=== PATIENT | male | born 1950 | race Caucasian/White ===

== ENCOUNTER 2017-01-04 12:42 | Inpatient (IN) ==
[2017-01-04] MEDS ORDERED: HYDROmorphone 2 MG/1 ML VIAL IV STA (14:05)
[2017-01-04 14:11] LABS: Basophils % 0.3 % (0.0-0.8); Eosinophils % 0.3 % (0.00-10.9); Hematocrit 34.7 VOL% (42.0-52.0); Hemoglobin 10.8 GM/DL (14.0-18.0); Immature Granulocytes % 0.7 %; Immature Granulocytes Absolute 0.09 #; Lymphocytes # 0.5 10*3/uL (1.4-4.0); Lymphocytes % 4.1 % (21.2-54.2); Mean Corpuscular HGB Conc 31.1 GM/DL (32-36); Mean Corpuscular Hemoglobin 27 PG (27-34); Mean Corpuscular Volume 85.5 FL (87-102); Mean Platelet Volume 11.3 FL (9.6-12.0); Monocytes # 1.1 10*3/uL (0.11-0.8); Monocytes % 9.1 % (1.7-12.7); Neutrophils # 10.3 10*3/uL (1.4-7.4); Neutrophils % 85.5 % (38.7-73.9); Platelet Count 343 T/CUMM (130-400); Red Blood Count 4.06 MC/CUMM (3.8-5.5); Red Cell Distribution Width 14.1 % (9.3-17.3); White Blood Count 12.1 T/CUMM (4-12)
[2017-01-04 14:28] LABS: Albumin 2.1 G/DL (3.4-5.0); Bilirubin,Total 0.6 MG/DL (0.2-1.0); Calcium 10.8 MG/DL (8.5-10.1); Osmolality,Calculated 293.3 MOS/KG (273-304); Potassium 4.4 MMOL/L (3.5-5.1); Total Protein 6.7 G/DL (6.4-8.3)
[2017-01-04] MEDS ORDERED: HYDROmorphone 2 MG/1 ML VIAL ONE (14:49)
--- NOTE | 2017-01-04 15:37 | XRay Report ---
XR chest 1V portable Indication: Abdominal pain Comparison: 05 December 2016 Findings: The heart and mediastinum are normal in size and configuration. The pulmonary vascularity is normal in caliber. No lung infiltrates, effusions, pneumothorax or other abnormality is demonstrated. Impression: Normal chest x-ray PROCEDURE INTERPRETED AT [facility] DEPARTMENT OF RADIOLOGY Final Report Signed by: Dr. Job England
[2017-01-04] MEDS ORDERED: SODIUM CHLORIDE 0.9% 1,000 ML IV ONE (15:42)
--- NOTE | 2017-01-04 16:16 | Emergency Department Note ---
Casper Briones Brittany, am scribing for, and in the presence of, Jaiden Vidal MD 14:23. Marcy Briones Phillip K, MD, personally performed the services described in this documentation, ascribed by Rosette Shirley in my presence, and it is both accurate and complete [id number] . Arrival - Arrival Chief Complaint: Abdominal / Flank Pain Stated Complaint: RENAL MASS-PROSTATE SWELLING-ACUTE PAIN ED Nursing Triage Note: Pt states that he was sent from Dr Baca office for admit through ER - pt was seen today for abd pain and swelling and left flank pain. Pt is being seen and treated per Dr Conner Grider for renal mass - pt states that he is also having some edema to lower extrem and jaundice Mode of Arrival: Ambulatory Limitations: No Limitations Source: Patient, Family - History of Present Illness HPI Narrative: This is a 66 y/o white male,who presents to the ED with c/o flank pain. He states he was being seen by Dr. Baca today for flank pain. He states he was seen here on 12/14/2016 for the same complaint. At this time a CT Pelvis and ABD and Ultrasound were preformed which read as follows: CT Abdomen and Pelvis : report reviewed by me (Bullous emphysema. Indeterminate small hypodensities in the liver and 24 mm left adrenal nodule. Cortical loss of the right kidney with probable small renal cysts. However, there is a probable 17 mm hyperdense cyst int he upper pole of the left kideny with possible q8 mm solid mass in the midpole of the left kidney. Moderate bilateral hydonephrosis with dilatation of the ureters to the level of the bladder. Significant bladder wall thickening with irregular contour on the bladder which may be related to a neoplastic process. Assocaited nonspecific enlargement of prostate. Abdominal and pelvic lyphadenopathy which can be seen with metastatic disease, lymphoma, etc. Minimal ascites and anasarca. Diverticulosis with prior appendectomy. ), Ultrasound: report reviewed by me (Left complex renal cyst.) His states he was told by Dr. Grider 3 days ago, he needed to see a Medical doctor. He was seen by Dr. Baca yesterday. Pt's states he has had bilateral pedal edema and jaudice. Pt has no other complaints/pain in the ED at this time. Pt has a PMHx of HTN, COPD, and left kidney mass. Pt denies a surgical Hx. PT denies a family medical Hx. Pt is a former smoker. Onset (ago): hour(s) (Earlier today) Consistency: constant Severity: moderate Allergies/Adverse Reactions: Allergies Allergy/AdvReac Type Severity Reaction Status Date / Time Penicillins Allergy RASH Verified 12/14/16 09:05 Home Medications: Home Medications Medication Instructions Recorded Confirmed Type Albuterol Inhaler [Proventil 2 puff INH Q6H PRN 01/04/17 01/04/17 History Inhaler] Bisacodyl Tab [Dulcolax Tab] 5 mg PO DAILY 01/04/17 01/04/17 History Docusate Sodium Cap [Colace Cap] 100 mg PO DAILY 01/04/17 01/04/17 History Lisinopril 10 mg PO DAILY 01/04/17 01/04/17 History Polyethylene Glycol Powder 17 gm PO DAILY PRN 01/04/17 01/04/17 History [Miralax] Tamsulosin HCl 0.4 mg PO BID 01/04/17 01/04/17 History Tiotropium [place] [Spiriva 4 gm INH BID 01/04/17 01/04/17 History Respimat] Review of System - Review of System 12 point system: reviewed and no additional remarkable complaints except as stated - Review of System Constitutional: Present: chills, fever Gastrointestinal: Present: abdominal pain, nausea Skin: Present: other (jaundice) Additional ROS comments: Decreased appetite, bilateral lower extremity edema Medical,Surgical,& Family Hx - Medical History Cardio: History of: Hypertension Respiratory: History of: COPD Reproductive: Reports: Reproductive Problems (kidney mass, prostate) - Surgical History Thoracic Surgeries: Patient denies;: Lobectomy - Social History Smoking Status: Former smoker Frequency of Alcohol Use: None Type of Drug Use: None Exam Vital Signs: Vital Signs Temperature 98.7 F 01/04/17 16:15 Pulse Rate 96 H 01/04/17 16:15 Respiratory Rate 18 01/04/17 16:15 Blood Pressure 100/60 01/04/17 16:15 O2 Sat by Pulse Oximetry 96 01/04/17 16:15 - General General appearance: alert, in no apparent distress - Head Head exam: Present: atraumatic, normocephalic, normal inspection - Eye Eye exam: Present: normal appearance, PERRL, EOMI. Absent: nystagmus - ENT ENT exam: Present: normal exam, normal oropharynx, mucous membranes moist - Neck Neck exam: Present: normal inspection, full ROM, trachea midline. Absent: tenderness, meningismus, lymphadenopathy, thyromegaly - Chest Chest inspection: Present: normal inspection, symmetric chest wall rise. Absent : tenderness, rash, abscess - Respiratory Respiratory exam: Present: normal lung sounds bilaterally. Absent: prolonged expiratory phase, rales, respiratory distress, rhonchi, stridor, wheezes - Cardiovascular Cardiovascular exam: Present: regular rate, normal rhythm, normal heart sounds. Absent: murmur, rubs, gallop, clicks, JVD - Abdominal Exam Abdominal exam: Present: soft, tenderness (Right Upper Quadrant tenderness), normal bowel sounds. Absent: distention, guarding, rebound, rigidity - Extremities Exam Extremities exam: Present: pedal edema (+1 pitting edema to the lower extremities bilaterally ) Results - Labs CBC & BMP: 01/04/17 13:29 01/04/17 13:29 Lab Results: I have reviewed the patients labs Labs: Laboratory Tests 01/04/17 01/04/17 13:29 13:29 WBC 12.1 H RBC 4.06 Hgb 10.8 L Hct 34.7 L MCV 85.5 L MCH 27 MCHC 31.1 L RDW 14.1 Plt Count 343 MPV 11.3 Neut % (Auto) 85.5 H Lymph % (Auto) 4.1 L [place] % (Auto) 9.1 Eos % (Auto) 0.3 Baso % (Auto) 0.3 Neut # (Auto) 10.3 H Lymph # (Auto) 0.5 L [place] # (Auto) 1.1 H Eos # (Auto) 0.0 Baso # (Auto) 0.0 Total Counted Pending Immature Gran % 0.7 Nucleated RBC % 0.0 Immature Gran # 0.09 Nucleated RBCs # 0.00 Sodium 141 Potassium 4.4 Chloride 104 Carbon Dioxide 26 Anion Gap 15.4 H BUN 50 H Creatinine 2.60 H GFR Calculation 29 BUN/Creatinine Ratio 19.00 Glucose 106 Calculated Osmolality 293.3 Calcium 10.8 H Total Bilirubin 0.60 AST 166 H ALT 147 H Alkaline Phosphatase 203 H Total Protein 6.7 Albumin 2.1 L Globulin 4.6 H Albumin/Globulin Ratio 0.4 L Lipase 83.0 - Diagnostic Findings Procedure: Chest x-ray: report reviewed by me (Normal Chest X-ray) Disposition Clinical Impression: probable bladder cancer, hematuria, Elevated liver enzymes, Anasarca, Left renal mass, COPD (chronic obstructive pulmonary disease) Disposition: Still a Patient Condition: Guarded Additional Instructions: Admit to the hospitalist.
--- NOTE | 2017-01-04 16:16 | Hospitalist History & Physical ---
Assessment and Plan - Time spent with patient Time spent with patient: Less than 30 minutes (1) Renal mass, left Status: Acute Assessment and plan: Patient with renal mass and irregular bladder contours with hydronephrosis seen on prior CT. Will admit and hydrate patient and clear for surgery in the morning with Dr. Conner Grider. Further recommendations to follow per Dr. Cornelius Current Visit: Yes (2) Pedal edema Status: Acute Assessment and plan: Patient with 4+ pitting edema of bilateral lower extremities. Will start with elevation and monitor. Further recs to follow per Dr. Cornelius. Current Visit: Yes (3) Acute renal failure Status: Acute Assessment and plan: Patient with elevated creatinine. In with low blood pressure and tachycardia will go ahead and bolus him 1 L. Further recs to follow per Dr. Cornelius. Current Visit: Yes History of Present Illness Chief complaint: Flank pain History of present illness: 66-year-old white male with history of COPD, hypertension presenting to the ED with complaints of flank pain. He states about 6 weeks ago he started having some lower extremity edema and that this is worsened over period of time. He presented to the ED 3 weeks ago and was seen by Dr. Andrea where he was found to have small hypodensities of the liver, left kidney mass, with bilateral hydronephrosis and irregular contour the bladder most likely related to neoplastic process. At that time he had minimal ascites and some anasarca. Along with pelvic lymphadenopathy. He had an appointment to see Dr. Conner Grider about 3 days ago. He wants to do a cystoscopy but he sent the patient to Dr. Baca first for medical clearance for surgery. He showed up in Dr. Baca's clinic today and he was immediately sent to the emergency room. Upon exam patient is in mild distress with some edema bilateral flanks and 4+ edema of the bilateral lower extremities. Patient complains of some intermittent blurry vision, denies headaches difficulty swallowing, diarrhea, positive for shortness of breath and constipation. His lab work is showing mildly elevated white count with a creatinine up to 2.6 and elevated LFTs with a normal T bili. Patient is afebrile with mild hypotension and tachycardia. Dr. Conner Grider is requested Dr. Cornelius to admit for surgical clearance in the morning. Home Medications Medication Instructions Recorded Confirmed Type Albuterol Inhaler [Proventil 2 puff INH Q6H PRN 03/09/17 03/09/17 History Inhaler] Bisacodyl Tab [Dulcolax Tab] 5 mg PO DAILY 01/04/17 01/04/17 History Docusate Sodium Cap [Colace Cap] 100 mg PO DAILY 01/04/17 01/04/17 History Lisinopril 10 mg PO DAILY 01/04/17 01/04/17 History Polyethylene Glycol Powder 17 gm PO DAILY PRN 01/04/17 01/04/17 History [Miralax] Tamsulosin HCl 0.4 mg PO BID 01/04/17 01/04/17 History Tiotropium [place] [Spiriva 4 gm INH BID 01/04/17 01/04/17 History Respimat] Allergies Allergy/AdvReac Type Severity Reaction Status Date / Time Penicillins Allergy RASH Verified 12/14/16 09:05 Medical,Surgical,& Family Hx - Medical History Cardio: History of: Hypertension Respiratory: History of: COPD Reproductive: Reports: Reproductive Problems (kidney mass, prostate) - Surgical History Thoracic Surgeries: Patient denies;: Lobectomy - Family History Family History: Reports;: Family Hypertension - Social History Smoking Status: Former smoker Frequency of Alcohol Use: None Type of Drug Use: None Marital Status: Lives With:: Spouse Review of systems: 10 point review of systems was obtained and pertinent positives and negatives in HPI Exam - Constitutional Vitals: Period Temp Pulse Resp BP Sys/Irving Pulse Ox Last 24 Hr 98.7 F 106 20 93/55 95 Exam: Constitutional System: Mild distress. Mild tremulousness. Head: Normocephalic, atraumatic. Ears, Nose and Throat System: No evidence of Otitis or Mastoiditis. No epistaxis or discharge, mucous membranes dry Eyes System: Pupils equal, round, and reactive. Extraocular muscles intact. Neck: Supple, without adenopathy, No jugular venous distention. No thyromegaly, neck mass, or prior surgery apparent. Respiratory System: Chest clear to auscultation. Cardiovascular System: Heart with tachycardia. No murmur. GI System: Abdomen soft, nontender. Normo active bowel sounds present. Some dependent edema in bilateral flanks with left greater than the right Musculoskeletal System: limbs with 4+ pedal edema. Distal pulses difficult to palpate due to edema. Neurological System: No discernable sensory deficit. No aphasia Psychiatric System: Conversation is rational Results - Labs CBC & BMP: 01/04/17 13:29 01/04/17 13:29 Lab Results: I have reviewed the past 24 hour labs - Diagnostic Findings Procedure: Chest x-ray: report reviewed by me (No acute process)
[2017-01-04 17:51] LABS: Band Neutrophils 1 % (0-10); Lymphocytes 6 % (20-55); Metamyelocytes 1 %; Platelet Estimate Normal; Segmented Neutrophils 88 % (50-85); Total Cells Counted 100
[2017-01-04 17:52] LABS: Hypochromasia Slight
[2017-01-04] MEDS ORDERED: ACETAMINOPHEN 325 MG TABLET PO PRN (18:10)
[2017-01-04] MEDS ORDERED: DOCUSATE SODIUM 100 MG CAPSULE PO PRN (18:10)
[2017-01-04] MEDS ORDERED: ZALEPLON 5 MG CAPSULE PO PRN (18:10)
[2017-01-04] MEDS ORDERED: LACTULOSE 20 GM/30 ML UDCUP PO PRN (18:10)
[2017-01-04] MEDS ORDERED: POLYETHYLENE GLYCOL POWDER 17 GM PACK PO PRN (18:12)
[2017-01-04] MEDS ORDERED: ALBUTEROL 2.5 MG/3 ML NEB RESP TX PRN (18:30)
[2017-01-04] MEDS: DEXTROSE 5% NACL 0.45% 1,000 ML IV SCH (18:31)
--- NOTE | 2017-01-04 18:43 | Urology Consultation ---
Assessment and Plan - Time spent with patient Time spent with patient: Greater than 30 minutes (1) Gross hematuria Status: Acute Current Visit: Yes (2) Bilateral hydronephrosis Status: Acute Current Visit: Yes (3) Abnormal CT scan, bladder Status: Acute Assessment and plan: I am going to place a Nicole in him. His creatinine is 2.6 hopefully this will improve. I will perform cystoscopy tomorrow. My fear is he has got bladder cancer. I am not worried about the renal masses. These are cysts and hyperdense cyst. These will take backseat to the voiding problems and the hematuria and the abnormal CT Current Visit: Yes History of Present Illness - Data of Consult Patient: known to practice within the last 3 years Consult date: 01/04/17 Requesting Physician: Zoya Cornelius - Consult Narrative Reason for consult: Hydronephrosis History of present illness: Mr. Nieto is a 66 year old male who I saw initially 2 years ago. He was referred to me with gross hematuria. Evaluation was scheduled but he refused. Evaluation included a CT urogram and cystoscopy. He then presented the office with multiple problems. He has had hematuria. He has bilateral hydronephrosis has an elevated creatinine and an abnormal bladder on CT scan. Is also found to have masses in the kidneys. Ultrasound of the kidney reveals cysts and hyperdense cyst. Nothing to suggest a significant cancer in the upper tracts. He was referred back over to Dr. Bianchi who then sent him to the emergency room today. He is being admitted. He was scheduled for an outpatient cystoscopy. Now the serum going to recommend we place a Nicole. He will still get a cystoscopy tomorrow. My fear is that he has got a significant bladder cancer that was there 2 years ago and he did not do anything about it. CC: Leonard Castellanos MD - Home Medications and Allergies Home Medications: Home Medications Medication Instructions Recorded Confirmed Type Albuterol Inhaler [Proventil 2 puff INH Q6H PRN 01/04/17 01/04/17 History Inhaler] Bisacodyl Tab [Dulcolax Tab] 5 mg PO DAILY 01/04/17 01/04/17 History Docusate Sodium Cap [Colace Cap] 100 mg PO DAILY 01/04/17 01/04/17 History Lisinopril 10 mg PO DAILY 01/04/17 01/04/17 History Polyethylene Glycol Powder 17 gm PO DAILY PRN 01/04/17 01/04/17 History [Miralax] Tamsulosin HCl 0.4 mg PO BID 01/04/17 01/04/17 History Tiotropium [place] [Spiriva 4 gm INH BID 01/04/17 01/04/17 History Respimat] Allergies/Adverse Reactions: Allergies Allergy/AdvReac Type Severity Reaction Status Date / Time Penicillins Allergy RASH Verified 12/14/16 09:05 12 point system: reviewed and no additional remarkable complaints except as stated - Genitourinary Genitourinary: Present: difficulty urinating, dysuria, hematuria, nocturia, urinary frequency, urinary incontinence Exam - Constitutional Vitals: Period Temp Pulse Resp BP Sys/Irving Pulse Ox Last 24 Hr 98.1 F-98.7 F 93-106 18-20 93-114/55-66 93-96 - GI/Abdominal GI/Abdominal exam: Present: soft. Absent: tenderness, rebound - Genitourinary Genitourinary: scrotum without lesions, cysts, edema or rash, penis with no lesions or discharge (Circumcised.), diffusely enlarged prostate without tenderness Results - Labs CBC & BMP: 01/04/17 13:29 01/04/17 13:29 Lab Results: I have reviewed the past 24 hour labs
[2017-01-04] MEDS ORDERED: ALUMINUM/MAGNES/SIMETH MAX STR 30 ML UDCUP PO PRN (19:15)
[2017-01-04] MEDS: IPRATROPIUM 500 MCG/2.5 ML NEB RESP TX SCH (19:44)
[2017-01-04] MEDS: TAMSULOSIN 0.4 MG CAPSULE PO SCH (20:34)
[2017-01-04] MEDS: ONDANSETRON 4 MG/2 ML VIAL IV PRN (22:14)
[2017-01-05] MEDS: MORPHINE 2 MG/1 ML SYRINGE IV PRN ×5 (02:10→22:22)
[2017-01-05] MEDS: ONDANSETRON 4 MG/2 ML VIAL IV PRN ×5 (02:11→22:22)
[2017-01-05] MEDS: DEXTROSE 5% NACL 0.45% 1,000 ML IV SCH ×2 (02:13→23:23)
[2017-01-05 06:42] LABS: Basophils % 0.3 % (0.0-0.8); Eosinophils % 0.2 % (0.00-10.9); Hematocrit 29.8 VOL% (42.0-52.0); Hemoglobin 9.4 GM/DL (14.0-18.0); Immature Granulocytes % 0.7 %; Immature Granulocytes Absolute 0.08 #; Lymphocytes # 0.9 10*3/uL (1.4-4.0); Lymphocytes % 7.3 % (21.2-54.2); Mean Corpuscular HGB Conc 31.5 GM/DL (32-36); Mean Corpuscular Hemoglobin 26 PG (27-34); Mean Corpuscular Volume 83.2 FL (87-102); Mean Platelet Volume 11.4 FL (9.6-12.0); Monocytes # 1.4 10*3/uL (0.11-0.8); Monocytes % 11.1 % (1.7-12.7); Neutrophils # 9.8 10*3/uL (1.4-7.4); Neutrophils % 80.4 % (38.7-73.9); Platelet Count 313 T/CUMM (130-400); Red Blood Count 3.58 MC/CUMM (3.8-5.5); Red Cell Distribution Width 14.2 % (9.3-17.3); White Blood Count 12.2 T/CUMM (4-12)
[2017-01-05] MEDS ORDERED: LIDOCAINE 2% TOP JELLY 20 ML VIAL INTRAURETH ONE (06:45)
[2017-01-05 07:32] LABS: Albumin 1.9 G/DL (3.4-5.0); Bilirubin,Total 0.6 MG/DL (0.2-1.0); Calcium 10.6 MG/DL (8.5-10.1); Osmolality,Calculated 287.7 MOS/KG (273-304); Potassium 4.5 MMOL/L (3.5-5.1); Total Protein 5.8 G/DL (6.4-8.3)
[2017-01-05] MEDS: IPRATROPIUM 500 MCG/2.5 ML NEB RESP TX SCH ×4 (08:01→19:38)
[2017-01-05] MEDS: TAMSULOSIN 0.4 MG CAPSULE PO SCH ×2 (08:05→20:23)
[2017-01-05] MEDS: BISACODYL 5 MG TABLET PO SCH (08:05)
[2017-01-05] MEDS: DOCUSATE SODIUM 100 MG CAPSULE PO SCH (08:05)
[2017-01-05] MEDS: PANTOPRAZOLE 40 MG TABLET PO SCH (08:05)
[2017-01-05 09:46] LABS: Thyroid Stimulating Hormone 1.12 uIU/ml (0.358-3.74)
--- NOTE | 2017-01-05 11:11 | Operative Note ---
Date of procedure: 01/05/17 Pre-op diagnosis: Urinary retention and gross hematuria Post-op diagnosis: other (Bladder mass consistent with bladder cancer) Procedure: 66-year-old gentleman who presents with urinary retention abnormal bladder bilateral hydronephrosis. He was seen 2 years ago and an evaluation for gross hematuria was set up but he failed to complete his evaluation then returns with the symptoms. He is brought in now to the hospital she had a catheter is now brought for cystoscopy. Patient brought to endoscopy prepared and draped in usual sterile manner. Previous catheters removed. 2% Xylocaine jelly is placed and bladder for anesthesia. Flexible 16 D[place]hi cystourethroscope passed under direct vision. Anterior urethra is normal. Prostate is irregular and proximal prostate there is irregular mass is at the base of his bladder. This appears to be bladder cancer but it potentially could be prostate cancer. But there is mass along the left side of his bladder. It bled is easily. So I did not get a good look. He clearly needs a TUR. At this point procedure was terminated. Cystoscope removed. A Nicole was replaced. Patient tolerates procedure well and present his room in good condition. Anesthesia: GETA, local Surgeon / Physician: Conner Grider Estimated blood loss: minimal Specimens: none sent Condition: stable Disposition: floor Results - Labs CBC & BMP: 01/05/17 05:31 01/05/17 05:31 Discharge Plan - Discharge Medications No Action Albuterol Inhaler [Proventil Inhaler] 2 puff INH Q6H PRN PRN Reason: Shortness Of Breath/Wheezing Bisacodyl Tab [Dulcolax Tab] 5 mg PO DAILY Docusate Sodium Cap [Colace Cap] 100 mg PO DAILY Polyethylene Glycol Powder [Miralax] 17 gm PO DAILY PRN PRN Reason: Constipation Tamsulosin HCl 0.4 mg PO BID Tiotropium [place] [Spiriva Respimat] 4 gm INH BID Lisinopril 10 mg PO DAILY - Follow Up or Referral - Forms/Instructions
--- NOTE | 2017-01-05 11:57 | Hospitalist Progress Note ---
Assessment and Plan (1) Hypercalcemia Status: Acute Assessment and plan: Hypercalcemia with iCa of 1.54. Low PTH and normal TSH is concerning for hypercalcemia of malignancy. Review of record reveals renal US but no CT on record. Will get CT ABD today as well as skeletal survey to r/o bone mets/lytic lesions. SPEP and UPEP pending. Current Visit: Yes (2) Bladder mass Status: Acute Assessment and plan: noted OP note. Path pending. c/w prostate or bladder primary CA Current Visit: Yes (3) Acute renal failure Status: Acute Assessment and plan: Related to partial NEWMAN? Had hydro on imaging. Now with wilson in place. Monitor response Current Visit: Yes (4) COPD (chronic obstructive pulmonary disease) Status: Chronic Current Visit: Yes Qualifiers: Emphysema type: unspecified (5) Gross hematuria Status: Acute Current Visit: Yes (6) Bilateral hydronephrosis Status: Acute Current Visit: Yes Hospitalist: Subjective Interval history: cystoscopy today. op report noted. mass at base of bladder. path pending. Pt reports weight loss in excess of 20# in past 2 months. No appetite. Exam - Constitutional Vitals: Period Temp Pulse Resp BP Sys/Irving Pulse Ox Last 24 Hr 98.1 F-100.0 F 84-106 16-20 93-125/51-69 91-97 General appearance: under weight - Head Head exam: Present: normal inspection - Eye Eye exam: Present: EOMI Pupils: Present: ANNALISA - ENT ENT exam: Present: normal exam - Neck Neck exam: Present: normal inspection. Absent: lymphadenopathy, tenderness - Respiratory Respiratory exam: Present: clear to auscultation bilaterally. Absent: accessory muscle use, chest wall tenderness - Cardiovascular Cardiovascular exam: Present: regular rate and rhythm. Absent: gallop, rubs - GI/Abdominal GI/Abdominal exam: Present: hypoactive bowel sounds. Absent: distended, tenderness - Extremities Exam Extremities exam: Present: full ROM. Absent: edema - Neurological Exam Neurological exam: Present: alert, oriented X3 - Psychiatric Psychiatric exam: Present: anxious - Skin Skin exam: Present: warm, dry Results - Labs CBC & BMP: 01/05/17 05:31 01/05/17 05:31 - Diagnostic Findings Procedure: Ultrasound: report reviewed by me
--- NOTE | 2017-01-05 14:56 | CT Report ---
Exam: CT abdomen pelvis wo con Date: 01/05/2017 11:50 AM Comparison: 12/14/2016 Indication: Generalized abdominal pain, suspect metastatic disease Technique:[Sequential axial scans of the abdomen and pelvis were obtained following ingestion of oral contrast. No IV contrast given. Coronal and sagittal 2-D reconstructions were obtained. Total DLP: 502.20. This CT exam was performed using one or more of the following dose reduction techniques: Automated exposure control, adjustment of the MA and/or KV according to patient's size, or use of iterative reconstruction technique.] Findings: Bullous emphysema with diffuse groundglass opacities. Residual atelectasis especially anteriorly in the right middle lobe. 1.7 mm noncalcified nodule in the left lower lobe not identified on previous exam. Progressive minimal subpleural nodularity in both lower lobes with tiny pleural effusions. The liver has a lobulated contour with progressive ill-defined hypodensities. The gallbladder is more contracted with possible gallbladder wall thickening. No dilatation of the bile ducts. Multiple calcified granulomata in the nonenlarged spleen. The adrenal glands and right kidney have an unremarkable appearance. Larger 29 mm left adrenal nodule which measured 24 mm on the previous exam. Persistent cortical loss in the kidneys with moderate hydronephrosis. Residual 17 mm hyperdense left upper pole renal cyst and 18 mm complex cystic/solid left midpole finding. No ureteral calculi identified. Nicole catheter in the decompressed urinary bladder with persistent bladder wall thickening. Air in the urinary bladder. Calcifications in the prostate which is stable in size. Calcification in the wall of the nondilated abdominal aorta with multiple enlarged periaortic and pericaval nodes the largest measuring 39 mm compared to 38 mm on the previous exam. Additional enlarged retrocrural, peripancreatic, and bilateral iliac nodes. No dilatation of the small bowel. Limited oral contrast in the colon with diverticulosis. No evidence of diverticulitis or free air with prior appendectomy. Progressive ascites especially in the pelvis. Degenerative changes are noted with progressive small sclerotic findings especially at L1 and T10. Impression: Bullous emphysema with progressive indeterminate small nodular findings at the lung bases with tiny pleural effusions. The liver has a more irregular contour with progressive hypodense findings consistent with probable metastatic disease. Minimally larger left adrenal nodule. Persistent cortical loss of the kidneys with moderate hydronephrosis, hyperdense cyst, and complex cysts/solid masses. Irregular bladder wall thickening with Nicole catheter. Progressive lymphadenopathy and minimal ascites. Limited oral contrast in the bowel with diverticulosis. Progressive small sclerotic findings. All of these findings are felt consistent with probable neoplastic process and follow-up is recommended. PROCEDURE INTERPRETED AT [facility] DEPARTMENT OF RADIOLOGY Final Report Signed by: Dr. Brit Mix
--- NOTE | 2017-01-05 15:06 | XRay Report ---
Exam: XR bone survey complete Date: 01/05/2017 10:56 AM Comparison: None Indication: Hypercalcemia, evaluate for malignancy Technique:[AP and lateral skull, AP and lateral cervical, thoracic, and lumbar spine, AP pelvis, AP and lateral femurs, AP bilateral lower legs, AP bilateral humeri, AP bilateral forearms.] Findings: The skull is normal in size shape and configuration. The sella turcica appears somewhat demineralized with no significant lytic lesions. The alignment of the spine is unremarkable with sclerosis and osteophytes. No obvious fracture is identified. Oral contrast limits evaluation of the pelvis. Elongation of the right lobe of the liver. Calcification in the the prostate. Degenerative changes in the joint spaces. Possible areas of rarefaction in the proximal and mid right humerus. Calcified granulomata/nodes. Impression: No definite fractures are identified. Degenerative changes are noted. Possible ill-defined areas of rarefaction in the right humerus. Bone scan recommended for further evaluation. PROCEDURE INTERPRETED AT [facility] DEPARTMENT OF RADIOLOGY Final Report Signed by: Dr. Brit Mix
[2017-01-05] MEDS: ALBUTEROL 2.5 MG/3 ML NEB RESP TX SCH (16:05)
[2017-01-06] MEDS: ALBUTEROL 2.5 MG/3 ML NEB RESP TX SCH ×4 (01:09→20:20)
[2017-01-06] MEDS: ONDANSETRON 4 MG/2 ML VIAL IV PRN ×5 (03:43→20:05)
[2017-01-06] MEDS: MORPHINE 2 MG/1 ML SYRINGE IV PRN ×3 (03:43→12:18)
[2017-01-06] MEDS: DEXTROSE 5% NACL 0.45% 1,000 ML IV SCH ×2 (06:11→20:14)
[2017-01-06 07:15] LABS: Albumin 1.6 G/DL (3.4-5.0); Calcium 10.6 MG/DL (8.5-10.1); Osmolality,Calculated 289.4 MOS/KG (273-304); Phosphorous 3.6 MG/DL (2.5-4.9); Potassium 4.3 MMOL/L (3.5-5.1)
[2017-01-06] MEDS: IPRATROPIUM 500 MCG/2.5 ML NEB RESP TX SCH ×4 (07:21→20:20)
[2017-01-06] MEDS: TAMSULOSIN 0.4 MG CAPSULE PO SCH ×2 (08:20→20:15)
[2017-01-06] MEDS: BISACODYL 5 MG TABLET PO SCH (08:20)
[2017-01-06] MEDS: PANTOPRAZOLE 40 MG TABLET PO SCH (08:20)
[2017-01-06] MEDS: DOCUSATE SODIUM 100 MG CAPSULE PO SCH (08:20)
--- NOTE | 2017-01-06 10:52 | Oncology Consult Note ---
Assessment and Plan (1) Bladder mass Status: Acute Assessment and plan: discussed with patient and family. suspect stage 4 bladder cancer with pathology pending - will check a PSA level - will follow up pathology - agree with bone scan for staging - recommend CT chest noncontrast given FARAZ to stage chest thank you for consult. will continue to follow and discuss further with patient once pathology returns and staging completed Current Visit: Yes (2) Hypercalcemia Status: Acute Assessment and plan: Low PTH supports likely secondary to malignancy - corrected level today 12.5 - SPEP pending - will hold off on zometa will renal function improving - agree with IVF and will add calcitonin 4 units/kg SC Q12h as a temporizing measure until zometa given Current Visit: Yes (3) Acute renal failure Status: Acute Assessment and plan: likely secondary to hypercalcemia with dehydration as well as bilateral hydronephrosis - trending downing down with IVF and wilson catheter - discussed with family if worsening renal function and if hydro were to worsen then may have to discuss nephrostomy tubes Current Visit: Yes (4) Elevated liver enzymes Status: Acute Assessment and plan: likely secondary to disease. - will add on a hepatitis panel Current Visit: Yes History of Present Illness Chief complaint: failure to thrive and diffuse abdominal pain History of present illness: Mr. Nieto is a 66 year old male with PMHx of COPD and hematuria presented with 7 weeks of failure to thrive, weight loss 20 lbs, poor PO intake, hematuria, severe diffuse abdominal pain. Per patient he has had intermittent hematuria for the last 2 years and did not seek medical attention. Patient had a CT scan of his abdomen concerning for bilateral hydronephrosis, renal cyst, abdominal adenopathy, pulmonary nodules, and bladder wall thickening. A cystoscopy performed on 01/05/17 revealed a friable bladder mass concerning for the primary. Patient states pain poorly controlled on morphine. Labs revealed significant hypercalcemia, LFT elevation and low albumin. Home Medications Medication Instructions Recorded Confirmed Type Albuterol Inhaler [Proventil 2 puff INH Q6H PRN 01/04/17 01/04/17 History Inhaler] Bisacodyl Tab [Dulcolax Tab] 5 mg PO DAILY 01/04/17 01/04/17 History Docusate Sodium Cap [Colace Cap] 100 mg PO DAILY 01/04/17 01/04/17 History Lisinopril 10 mg PO DAILY 01/04/17 01/04/17 History Polyethylene Glycol Powder 17 gm PO DAILY PRN 01/04/17 01/04/17 History [Miralax] Tamsulosin HCl 0.4 mg PO BID 01/04/17 01/04/17 History Tiotropium [place] [Spiriva 4 gm INH BID 01/04/17 01/04/17 History Respimat] Allergies Allergy/AdvReac Type Severity Reaction Status Date / Time Penicillins Allergy RASH Verified 12/14/16 09:05 Medical,Surgical,& Family Hx - Medical History Cardio: History of: Hypertension Respiratory: History of: COPD Reproductive: Reports: Reproductive Problems (kidney mass, prostate) - Surgical History Thoracic Surgeries: Patient denies;: Lobectomy - Family History Family History: Reports;: Family Diabetes (grandmother), Family Heart Disease ( father), Family Hypertension Denies;: Family Anesthesia Reaction, Family Cancer, Family Hematology, Family Psychiatric Problems, Family Stroke, Additional Family History - Social History Smoking Status: Former smoker Frequency of Alcohol Use: None Type of Drug Use: None - Constitutional Constitutional: Present: fatigue, weakness, weight loss - EENT Nose, mouth and throat: Absent: dizziness - Cardiovascular Cardiovascular ROS IM: Present: edema. Absent: chest pain, orthopnea - Respiratory Respiratory: Absent: cough, dyspnea, hemoptysis - Gastrointestinal Gastrointestinal: Present: abdominal pain. Absent: diarrhea, hematemesis, hematochezia, melena, nausea, jaundice - Genitourinary Genitourinary ROS male: Present: hematuria - Musculoskeletal Musculoskeletal ROS: Present: arthralgias, back pain Exam - Constitutional Vitals: Period Temp Pulse Resp BP Sys/Irving Pulse Ox Last 24 Hr 98 F-98.8 F 78-95 16-20 105-123/58-68 90-98 General appearance: mild distress, cachectic - Eye Eye Exam: Present: EOMI Pupils: Present: PERRL - Neck Neck exam: Absent: lymphadenopathy - Respiratory Respiratory exam: Present: CTAB - Cardiovascular Cardiovascular exam: Present: RRR - GI/Abdominal GI/Abdominal exam: Present: guarding (voluntary guarding), tenderness. Absent: ascites, distended, mass - Extremities Exam Extremities exam: Present: edema (bilateral LE) - Neurological Exam Neurological exam: Present: alert, oriented X3, CN II-XII intact - Skin Skin exam: Present: warm Results - Labs CBC & BMP: 01/05/17 05:31 01/06/17 06:03
--- NOTE | 2017-01-06 11:57 | Hospitalist Progress Note ---
Assessment and Plan (1) Hypercalcemia Status: Acute Assessment and plan: Hypercalcemia with iCa of 1.54. Low PTH and normal TSH is concerning for hypercalcemia of malignancy. On IVF, calcitonin added by oncology. SPEP and UPEP pending. Current Visit: Yes (2) Bladder mass Status: Acute Assessment and plan: Path pending. Clinical picture c/w metastatic disease. Medical oncology consulted. Thank you. Current Visit: Yes (3) Acute renal failure Status: Acute Assessment and plan: Related to partial NEWMAN? Had hydro on imaging. Now with wilson in place. Improving. Current Visit: Yes (4) COPD (chronic obstructive pulmonary disease) Status: Chronic Current Visit: Yes Qualifiers: Emphysema type: unspecified (5) Gross hematuria Status: Acute Current Visit: Yes (6) Bilateral hydronephrosis Status: Acute Current Visit: Yes (7) Abdominal pain Status: Acute Assessment and plan: Likely related to metastatic dz. Pain is not controlled with current regime. Anticipate pt will require management of pain for some time going forward; will begin long-acting/basal pain med with MS contin. PRN [place] or IV morphine for breakthrough pain. Current Visit: Yes Qualifiers: Abdominal location: generalized Qualified Code(s): R10.84 - Generalized abdominal pain Hospitalist: Subjective Interval history: Pain in abdomen not well controlled with current tx. Poor appetite. Exam - Constitutional Vitals: Period Temp Pulse Resp BP Sys/Irving Pulse Ox Last 24 Hr 98 F-98.8 F 78-95 16-20 105-123/58-68 90-98 General appearance: mild distress (pain) - Head Head exam: Present: normal inspection, atraumatic - Eye Eye exam: Present: EOMI. Absent: scleral icterus Pupils: Present: ANNALISA - ENT ENT exam: Present: normal exam - Neck Neck exam: Present: normal inspection. Absent: lymphadenopathy, meningismus - Respiratory Respiratory exam: Present: decreased breath sounds. Absent: accessory muscle use (few scattered rhonchi with decreased BS in bases) - Cardiovascular Cardiovascular exam: Present: regular rate and rhythm. Absent: gallop, rubs - GI/Abdominal GI/Abdominal exam: Present: hypoactive bowel sounds. Absent: distended ( generalized TTP without rebound or guarding ) - Extremities Exam Extremities exam: Present: normal inspection, full ROM - Neurological Exam Neurological exam: Present: alert, oriented X3 - Psychiatric Psychiatric exam: Present: flat affect - Skin Skin exam: Present: warm, dry Results - Labs CBC & BMP: 01/05/17 05:31 01/06/17 06:03 - Diagnostic Findings Procedure: Chest x-ray: report reviewed by me, CT Abdomen and Pelvis: report reviewed by me
[2017-01-06] MEDS: MORPHINE ER 30 MG TABLET PO SCH ×2 (12:18→23:36)
[2017-01-06] MEDS: CALCITONIN 400 UNIT/2 ML VIAL SUBCUT SCH ×2 (12:21→23:47)
--- NOTE | 2017-01-06 14:01 | CT Report ---
Exam: CT chest wo con Date: 01/06/2017 11:47 AM Comparison: CT abdomen and pelvis, 01/05/2017, chest x-ray, 01/04/2017 Indication: Staging chest CT with new malignancy Technique:[Sequential axial scans of the chest were obtained without contrast. Coronal and sagittal 2-D reconstructions were obtained. Total DLP: 346.50. There is CT was performed using one or more of the following dose reduction techniques: Automated exposure control, adjustment of the MA and/or KV according to patient size, or diffuse iterative reconstruction technique. Findings: The heart is normal in size with small pericardial effusion. Arterial calcifications are noted including coronary artery calcification. Limited evaluation of the vasculature without contrast. Calcified nodes and granulomata. Calcified granulomata in the liver visualized liver and spleen. Stable findings in the left adrenal gland and left kidney. Degenerative changes are noted with small areas of sclerosis at T10 and L1. Similar findings are noted in the ribs essentially in the left posterior ribs. Bullous emphysema with minimal tracheal secretions. Small pleural effusions with residual atelectasis and groundglass opacities. Residual 1.7 mm noncalcified nodule in the left lower lobe. There is residual diffuse subpleural nodularity in the lower lobes. 1.5 mm noncalcified pulmonary nodule in the right middle lobe. Stable atelectasis more inferiorly in the right middle lobe. 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 Persistent indeterminate tiny noncalcified pulmonary nodules with small sclerotic findings in the spine and ribs, and stable left adrenal nodule. These findings could be related to possible metastatic disease. Small pleural effusions with residual atelectasis and groundglass opacities. Arterial calcifications. Stable findings in the visualized left kidney as noted on CT of 01/05/2017. PROCEDURE INTERPRETED AT [facility] DEPARTMENT OF RADIOLOGY Final Report Signed by: Dr. Brit Mix
--- NOTE | 2017-01-06 14:04 | Nuclear Medicine Report ---
Exam: Whole-body bone scan Date: 01/06/2017 Comparison: CT chest 01/06/2017, CT abdomen and pelvis 01/05/2017 Reason: Bladder mass, suspect metastatic disease Technique: 30 mCi of technetium 99m MDP was administered IV. Delayed anterior and posterior whole body images were then acquired. Findings: Increased uptake in the major joints, especially the shoulders, sternoclavicular joints, and knees. Asymmetric uptake in the left acetabulum and right femoral neck. Also there is increased uptake in the spine which appears more pronounced in the mid to lower thoracic and upper lumbar spine location. Multiple areas of inhomogeneous uptake in bilateral ribs. Findings are more pronounced on the left. Nicole catheter in urinary bladder with bilateral hydronephrosis. Impression: Findings consistent with probable metastatic disease. Nicole catheter in urinary bladder with bilateral hydronephrosis. PROCEDURE INTERPRETED AT [facility] DEPARTMENT OF RADIOLOGY Final Report Signed by: Dr. Brit Mix
[2017-01-07] MEDS: ALBUTEROL 2.5 MG/3 ML NEB RESP TX SCH ×4 (01:03→19:31)
[2017-01-07] MEDS: ONDANSETRON 4 MG/2 ML VIAL IV PRN ×4 (04:24→22:39)
[2017-01-07] MEDS: DEXTROSE 5% NACL 0.45% 1,000 ML IV SCH ×3 (04:25→23:51)
[2017-01-07] MEDS: MORPHINE 2 MG/1 ML SYRINGE IV PRN ×2 (04:25→16:36)
[2017-01-07] MEDS: IPRATROPIUM 500 MCG/2.5 ML NEB RESP TX SCH ×4 (07:36→19:31)
[2017-01-07 08:27] LABS: Albumin 1.6 G/DL (3.4-5.0); Calcium 10.5 MG/DL (8.5-10.1); Osmolality,Calculated 289.5 MOS/KG (273-304); Phosphorous 4.6 MG/DL (2.5-4.9); Potassium 4.7 MMOL/L (3.5-5.1)
[2017-01-07] MEDS: BISACODYL 5 MG TABLET PO SCH (09:04)
[2017-01-07] MEDS: PANTOPRAZOLE 40 MG TABLET PO SCH (09:04)
[2017-01-07] MEDS: MORPHINE ER 30 MG TABLET PO SCH ×2 (09:04→21:09)
[2017-01-07] MEDS: DOCUSATE SODIUM 100 MG CAPSULE PO SCH (09:04)
[2017-01-07] MEDS: TAMSULOSIN 0.4 MG CAPSULE PO SCH ×2 (09:23→10:10)
[2017-01-07 09:24] LABS: Hepatitis A Ab IgM Quant 0.18 Index; Hepatitis A Ab IgM Result Negative (Negative); Hepatitis B Core IgM Quant 0.15 Index; Hepatitis B Core IgM Result Negative (Negative); Hepatitis B Surface Ag Quant < 0.10 Index; Hepatitis B Surface Ag Result Negative (Negative); Hepatitis C Virus Ab Quant 0.34 Index; Hepatitis C Virus Ab Result Negative (Negative)
[2017-01-07] MEDS ORDERED: MAGNESIUM HYDROXIDE SUSP 30 ML UDCUP PO PRN (11:47)
--- NOTE | 2017-01-07 11:53 | Oncology Progress Note ---
Assessment and Plan (1) Bladder mass Status: Acute Assessment and plan: discussed with patient and family. suspect stage 4 bladder cancer - PSA level pending - following along with urology for a TUR for pathologic diagnosis - bone scan with likely bony mets - CT chest noncontrast with indeterminant pulmonary nodules - pain management - will check a KUB today for nasuea and abdominal pain to rule out obstruction Current Visit: Yes (2) Hypercalcemia Status: Acute Assessment and plan: Low PTH supports likely secondary to malignancy - corrected level 12.5 - stable today - SPEP pending - holding off on zometa with anticipation of recovering renal function prior to administration - continue with IVF and calcitonin 4 units/kg SC Q12h as a temporizing measure until zometa given - encouraged laxatives for constipation Current Visit: Yes (3) Acute renal failure Status: Acute Assessment and plan: likely secondary to hypercalcemia with dehydration as well as bilateral hydronephrosis - stable today with IVF and wilson catheter - will discuss with urology if renal function does not improve and continued hydronephrosis the benefit of stent and/or nephrostomy Current Visit: Yes (4) Elevated liver enzymes Status: Acute Assessment and plan: likely secondary to disease. - hepatitis panel negative Current Visit: Yes Oncology Subjective PN Interval history: 66 year old male with PMHx of COPD presented with hematuria and abdominal pain found to have a bladder mass and likely metastasis to bones, LN, and liver. Patient also with FARAZ, bilateral hydronephrosis, and hypercalcemia. Today patient states pain still significant in abdomen. No bowel movements. Refers nausea with any PO intake. No taking zofran. No SOB. No fevers. Not getting out of bed. Wilson putting out urine. Exam - Constitutional Vitals: Period Temp Pulse Resp BP Sys/Irving Pulse Ox Last 24 Hr 97.8 F-99.4 F 78-93 16-22 100-122/56-63 90-99 General appearance: no acute distress, cachectic - Eye Eye Exam: Present: EOMI Pupils: Present: PERRL - Respiratory Respiratory exam: Present: CTAB - Cardiovascular Cardiovascular exam: Present: RRR - GI/Abdominal GI/Abdominal exam: Present: guarding (voluntary), tenderness, soft. Absent: ascites, distended, mass - Extremities Exam Extremities exam: Present: edema - Neurological Exam Neurological exam: Present: alert, oriented X3 - Skin Skin exam: Present: warm Results - Labs CBC & BMP: 01/05/17 05:31 01/07/17 07:42
[2017-01-07] MEDS: CALCITONIN 400 UNIT/2 ML VIAL SUBCUT SCH ×2 (12:35→23:52)
--- NOTE | 2017-01-07 13:14 | Hospitalist Progress Note ---
Assessment and Plan - Time spent with patient Time spent with patient: Less than 30 minutes (1) Bladder mass Status: Acute Assessment and plan: Path pending. Clinical picture c/w metastatic disease. Medical oncology consulted. Thank you. Bone scan and CT chest findings noted. Urologic surgery tomorrow? Current Visit: Yes (2) Acute renal failure Status: Acute Assessment and plan: Related to partial NEWMAN? Had hydro on imaging. Now with wilson in place. Good urine output but no further improvement in CrCl in last 24 hrs. No indication for MANAGER HARDWARE at this time. Persistent ureteral dilation? Possible ureteral stents? Current Visit: Yes (3) Hypercalcemia Status: Acute Assessment and plan: Hypercalcemia of malignancy. Suspected bone mets based on bone scan. On IVF, calcitonin added by oncology. SPEP and UPEP pending. Current Visit: Yes (4) COPD (chronic obstructive pulmonary disease) Status: Chronic Current Visit: Yes Qualifiers: Emphysema type: unspecified (5) Gross hematuria Status: Acute Current Visit: Yes (6) Bilateral hydronephrosis Status: Acute Current Visit: Yes (7) Abdominal pain Status: Acute Assessment and plan: Likely related to metastatic dz. Pain is not controlled with current regime. Anticipate pt will require management of pain for some time going forward; will begin long-acting/basal pain med with MS contin. PRN [place] or IV morphine for breakthrough pain. Current Visit: Yes Qualifiers: Abdominal location: generalized Qualified Code(s): R10.84 - Generalized abdominal pain Hospitalist: Subjective Interval history: some improvement in pain with addition of MS contin but still not at goal. Persistent nausea with paucity of flatus and no recent BM Exam - Constitutional Vitals: Period Temp Pulse Resp BP Sys/Irving Pulse Ox Last 24 Hr 97.8 F-99.4 F 78-93 16-22 100-118/56-63 90-99 General appearance: mild distress, other (distress due to pain and nausea) - Head Head exam: Present: normal inspection - Eye Eye exam: Present: EOMI. Absent: scleral icterus Pupils: Present: ANNALISA - ENT ENT exam: Present: normal exam - Neck Neck exam: Present: normal inspection. Absent: lymphadenopathy - Respiratory Respiratory exam: Present: clear to auscultation bilaterally. Absent: rales, rhonchi, wheezes - Cardiovascular Cardiovascular exam: Present: regular rate and rhythm - GI/Abdominal GI/Abdominal exam: Present: guarding, hypoactive bowel sounds, tenderness, soft. Absent: rebound - Extremities Exam Extremities exam: Present: normal inspection, full ROM - Neurological Exam Neurological exam: Present: alert, oriented X3 - Psychiatric Psychiatric exam: Present: depressed - Skin Skin exam: Present: warm, dry Results - Labs CBC & BMP: 01/05/17 05:31 01/07/17 07:42
--- NOTE | 2017-01-07 13:46 | Urology Progress Note ---
Assessment and Plan (1) Gross hematuria Status: Acute Current Visit: Yes (2) Bilateral hydronephrosis Status: Acute Current Visit: Yes (3) Abnormal CT scan, bladder Status: Acute Assessment and plan: I am going to place a Nicole in him. His creatinine is 2.6 hopefully this will improve. I will perform cystoscopy tomorrow. My fear is he has got bladder cancer. I am not worried about the renal masses. These are cysts and hyperdense cyst. These will take backseat to the voiding problems and the hematuria and the abnormal CT Current Visit: Yes Urology - PN: Subj Interval history: Follow-up cancer. Had a bone scan. CT chest. Bone scan shows metastatic disease. The bone survey did not reveal classic osteoblastic lesions. CT chest shows multiple pulmonary nodules. His PSA here is pending. This is either prostate cancer or bladder cancer and I favor bladder. He is scheduled for TUR on Sunday. I will send a frozen section but sometimes they can tell and it may take the full studies before we have an answer. I had a long discussion with the and the patient. His prognosis of prostate cancer would be better than bladder cancer. We have more treatment options with the prostate and we do with the bladder. I relayed to the patient and the that he is not curative at this point. No curative surgery can be offered. Radiation does not apply apart in this only for pain control. They understand. He is nauseated and can eat. Flomax apparently caused nausea so I will stop that but is not the Flomax. Exam - Constitutional Vitals: Period Temp Pulse Resp BP Sys/Irving Pulse Ox Last 24 Hr 97.8 F-99.4 F 78-93 16-22 100-118/56-63 90-99 Results - Labs CBC & BMP: 01/05/17 05:31 01/07/17 07:42
[2017-01-07] MEDS: PROCHLORPERAZINE 10 MG TABLET PO SCH ×2 (15:48→21:10)
--- NOTE | 2017-01-07 17:18 | XRay Report ---
Exam: XR KUB Date: 01/07/2017 11:48 AM Comparison: 12/05/2016, CT abdomen and pelvis 01/05/2017 Indication: Nausea, generalized abdominal pain Technique:[Portable supine abdomen] Findings: Mild gaseous distention of the stomach and transverse colon. The oral contrast now projects in the colon with diverticulosis. Enlargement of the right lobe of the liver. Degenerative changes are noted. Impression: Mild gaseous distention of the stomach and transverse colon could be related to mild ileus, etc. Pancreatitis should be excluded clinically. Oral contrast remains in the colon with diverticulosis. Enlargement of the right lobe of the liver. PROCEDURE INTERPRETED AT [facility] [place] DEPARTMENT OF RADIOLOGY Final Report Signed by: Dr. Brit Mix
[2017-01-08] MEDS: ALBUTEROL 2.5 MG/3 ML NEB RESP TX SCH ×3 (01:22→13:46)
[2017-01-08] MEDS: IPRATROPIUM 500 MCG/2.5 ML NEB RESP TX SCH ×2 (06:00→12:07)
[2017-01-08] MEDS: ONDANSETRON 4 MG/2 ML VIAL IV PRN (06:06)
[2017-01-08 07:23] LABS: Albumin 1.6 G/DL (3.4-5.0); Calcium 11.1 MG/DL (8.5-10.1); Osmolality,Calculated 293.5 MOS/KG (273-304); Phosphorous 5.3 MG/DL (2.5-4.9); Potassium 4.8 MMOL/L (3.5-5.1)
[2017-01-08] MEDS: DEXTROSE 5% NACL 0.45% 1,000 ML IV SCH ×2 (07:29→08:33)
[2017-01-08] MEDS: MORPHINE ER 30 MG TABLET PO SCH (08:14)
[2017-01-08] MEDS: PROCHLORPERAZINE 10 MG TABLET PO SCH ×3 (08:15→21:32)
[2017-01-08] MEDS: PANTOPRAZOLE 40 MG TABLET PO SCH (08:17)
[2017-01-08] MEDS: DOCUSATE SODIUM 100 MG CAPSULE PO SCH (08:17)
[2017-01-08] MEDS: BISACODYL 5 MG TABLET PO SCH (08:17)
[2017-01-08 09:56] LABS: Albumin (SPE) Rel % 34.7 %; Alpha 1 (SPE) 0.4 G/DL (0.1-0.4); Alpha 1 (SPE) Rel % 7.9 %; Total Protein (Chem) 5.8 G/DL (6.4-8.2)
[2017-01-08 09:57] LABS: Alpha 2 (SPE) 0.8 G/DL (0.4-1.0); Alpha 2 (SPE) Rel % 13.1 %; Beta (SPE) 0.7 G/DL (0.5-1.1); Beta (SPE) Rel % 12.8 %; Gamma (SPE) 1.8 G/DL (0.7-1.7); Gamma (SPE) Rel % 31.5 %
[2017-01-08 10:03] LABS: Random Urine Protein (Bench) 112 MG/DL (<11.9)
[2017-01-08] MEDS ORDERED: SUCCINYLCHOLINE 200 MG/10 ML VIAL ONE (12:00)
[2017-01-08] MEDS ORDERED: ETOMIDATE 20 MG/10 ML VIAL IV ONE (12:00)
--- NOTE | 2017-01-08 12:18 | Anesthesia ---
Anesthesia Procedures - Intubation Time out performed intubation: Yes Sedative: Etomidate Mg given sedative: 20 Paralytic: Succinylcholine Mg given paralytic: 140 Laryngoscope: [place] ET Tube Size: 7.5 ET Tube Uncuffed: No Tube Secured Depth (cm): 22 Tube Secured Location: lips Tube Placement Confirmation: visualized tube passing through cords, equal breath sounds bilaterally Patient tolerated procedure intubation: well Intubation Complications: none (Intubated per H.RODNEY Forte with BRE Mon[place] at bedside. Head and neck neutral position. Dentition unchanged. Atraumatic. Grade II view laryngoscopy Rapid Sequence Intubation without complications.)
[2017-01-08] MEDS ORDERED: PHENYLEPHRINE DRIP 0 MG/0 ML PREMIX IV ONE (12:19)
[2017-01-08] MEDS ORDERED: NOREPINEPHRINE 4 MG/4 ML VIAL IV ONE (12:20)
--- NOTE | 2017-01-08 12:28 | Hospitalist Progress Note ---
Assessment and Plan - Time spent with patient Time spent with patient: Greater than 30 minutes (Time for patient assessment intervention chart review and decision-making is 50 minutes) (1) Acute respiratory failure with hypoxemia Status: Acute Assessment and plan: Primary cause of this is unknown. Present x-rays have not revealed any pulmonary edema or extensive pleural effusions yet. She has been intubated will have a chest x-ray at the bedside and will assess lung status. Maintain the patient on a ventilator assist control because of poor cognitive function and he is paralyzed. Give him 100% FiO2 initially tidal volume of 650 rate of 12. I will get pulmonary consult for ventilator management. Current Visit: Yes (2) Renal mass, left Status: Acute Assessment and plan: This is been followed by oncology I will heed to the recommendations. Current Visit: Yes (3) Acute renal failure Status: Acute Assessment and plan: Patient is noted to have hydronephrosis most likely obstructive may be adenopathy is responsible for this. He also has a renal mass. I do not see a nephrology consult on board with therefore call that one too. Current Visit: Yes (4) Hypotension Status: Acute Assessment and plan: Cause of this at this point is unknown. There is no indication the patient is bleeding. Repeat CBC with differential. Sepsis and cardiogenic causes are possibility. Vision will therefore have a sepsis workup with 2 sets of blood cultures a urine culture and Gram stain obtain a chest x-ray as mentioned above. Start him on aztreonam 1 g now and 500 mg IV every 12 hours and vancomycin 1 g now and 750 mg IV every 12 hours. Gait pharmacy involved for pharmacokinetics and dosing of vancomycin subsequently. Current Visit: Yes Hospitalist: Subjective Interval history: This is my first encounter with his gentleman, 66-year-old gentleman admitted to the hospital with acute renal failure. With edema the discovery of a renal mass. Patient is noted to have metastases to the bone. 5 is called me a short while ago that patient was not breathing well and not a blood pressure systolic in the 50s. I instructed them to start the difficulties of moving the patient to the intensive care unit. I happened to be on treatment at that time with another patient who needed attention. 5 minutes to get to the floor where from the and another family member outside the door. The patient was agonal breathing been given a Ventimask with pulse oximetry is in the 60's ordered a nonrebreather mask that time. Also ordered a full syringe of normal saline. Informed there are no beds in intensive care unit by the attempts to try to get a bed for him to move down. Time rapid response after not been informed. I ordered the floor to get rapid response to the floor. Patient was subsequently moved to the intensive care unit where he got intubated and ordered a central line to be put in. Will need pressors here. Continuing the IV fluid challenge at this time. This gentleman more than likely has diffuse static disease. CT scan of the chest shows bullous emphysema with evidence of old healed granulomatous. There is persistent in indeterminate tiny noncalcified pulmonary nodules with a small sclerotic findings in the spine and ribs these findings could be possible metastasis. There is small pleural effusion. Bone scan, there is increased uptake in the major joints especially the shoulder, sternoclavicular joints and knees symmetric uptake in the left acetabulum and right femoral neck. There is increased uptake in the spine. These findings are consistent with probable metastatic disease. At this point because of respiratory failure and hypotension is unclear we will reassess the heart with assess for sepsis. Patient does have the hydronephrosis and therefore urinary tract infection can be an issue. This patient has been seen by my service urologist and oncologist. From what I gather from the family are not sure as to the extent of this patient's disease and whether it is treatable. Therefore under decisions on how aggressive we should be is unclear at this point. In May the wound is will need sepsis workup will repeat EKG to run troponins run the whole chemistry and obtain an echocardiogram. Exam - Constitutional Vitals: Period Temp Pulse Resp BP Sys/Irving Pulse Ox Last 24 Hr 97.4 F-98.6 F 90-115 18-24 78-127/48-65 72-94 General appearance: normal weight - Head Head exam: Present: normocephalic, atraumatic - Eye Eye exam: Present: other (Anicteric sclera no conjunctival petechia) Pupils: Present: ANNALISA - ENT ENT exam: Present: other (Order intubated now) - Neck Neck exam: Present: other (Neck was supple no adenopathy no JVD initial evaluation upstairs) - Respiratory Respiratory exam: Present: other (Agonal breathing obviously not adequate with pulse oximetry is in the 70s and subsequently went up to the 90s with a nonrebreather patient still did have ineffective ineffective breathing, and had to be intubated) - Cardiovascular Cardiovascular exam: Present: irregular rhythm, other (Tachycardia hypoxemia and hypotension) - GI/Abdominal GI/Abdominal exam: Present: other (Soft abdomen was grimacing and grunting when he palpated) - Extremities Exam Extremities exam: Present: other (Generalized weakness) - Back Exam Back exam: Present: other (Generalized with) - Neurological Exam Neurological exam: Present: other (Responding to verbal stimulus but to tactile and pain he was responsive for cognitive output) - Psychiatric Psychiatric exam: Present: other (Not be assessed) - Skin Skin exam: Present: warm, dry Results - Labs CBC & BMP: 01/05/17 05:31 01/08/17 06:20 Lab Results: I have reviewed the past 24 hour labs
[2017-01-08] MEDS ORDERED: HEPARIN 5,000 UNIT/1 ML VIAL ONE (12:40)
[2017-01-08] MEDS ORDERED: HEPARIN/NACL 0.9% 2 UNITS/ML 500 ML IV ONE (12:40)
[2017-01-08] MEDS ORDERED: AZTREONAM 1,000 MG VIAL IM STA (12:42)
[2017-01-08] MEDS: SODIUM CHLORIDE 0.9% 1,000 ML IV SCH ×2 (12:45→21:35)
[2017-01-08] MEDS ORDERED: PROPOFOL 1,000 MG/100 ML BOTTLE IV ONE (12:46)
--- NOTE | 2017-01-08 12:58 | Anesthesia ---
Anesthesia Procedures - Central Venous Insert Monitors Applied: pulse oximetry, EKG, BP cuff, oxygen via MSBT: pulse oximetry, EKG, BP cuff, oxygen via Procedure: after sterile technique was performed as outlined above, vital signs were stable throughout procedure, no apparent complications were noted, CXR to be obtained and read, , ultrasound guidance was used to identify vessel, 1.5 % lidocaine used to numb skin, 18G introducer needle was passed into vessel under direct visualizatio, 16G introducer needle was passed into vessel under direct visualizatio, 7fr double lumen catheter was passed over guidewire without difficulty, triple lumen catheter was passed over guidewire without difficulty, catheter sutured into place and the ports flushed with NS/hepflush, sterlie dressing applied including the antibiotic disc Ultrasound used: identify patency vessel, visualize needle entry to vessel Vein Cannulated: right internal juglar
--- NOTE | 2017-01-08 13:25 | EKG Report ---
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
[2017-01-08 13:27] LABS: Basophils % 0.1 % (0.0-0.8); Eosinophils % 0.1 % (0.00-10.9); Hematocrit 32.6 VOL% (42.0-52.0); Hemoglobin 9.8 GM/DL (14.0-18.0); Immature Granulocytes % 1.6 %; Immature Granulocytes Absolute 0.38 #; Lymphocytes # 0.4 10*3/uL (1.4-4.0); Lymphocytes % 1.9 % (21.2-54.2); Mean Corpuscular HGB Conc 30.1 GM/DL (32-36); Mean Corpuscular Hemoglobin 27 PG (27-34); Mean Corpuscular Volume 89.1 FL (87-102); Mean Platelet Volume 10.6 FL (9.6-12.0); Monocytes # 1.7 10*3/uL (0.11-0.8); Monocytes % 7.1 % (1.7-12.7); NRBC # 0.02 10*3/uL; Neutrophils # 21.2 10*3/uL (1.4-7.4); Neutrophils % 89.2 % (38.7-73.9); Platelet Count 444 T/CUMM (130-400); Red Blood Count 3.66 MC/CUMM (3.8-5.5); Red Cell Distribution Width 14.4 % (9.3-17.3); White Blood Count 23.8 T/CUMM (4-12)
--- NOTE | 2017-01-08 13:40 | XRay Report ---
Portable chest Date: 01/08/2017 Clinical history: Intubation, respiratory failure Comparison: 01/04/2017 Technique: Portable AP sitting chest Findings: The heart is small and compressed by the over expanded lungs. Endotracheal tube and nasogastric tube in satisfactory position. Right IJ CVP line with tip at junction of SVC and right atrium. Progressive parenchymal findings especially at the left lung base. Artifactual densities limit the exam. Calcified granulomata/lymph nodes with degenerative changes. Impression: Support devices in satisfactory position. COPD with progressive minimal atelectasis/infiltration/edema especially at the left lung base. PROCEDURE INTERPRETED AT [facility] DEPARTMENT OF RADIOLOGY Final Report Signed by: Dr. Brit Mix
[2017-01-08] MEDS: AZTREONAM 1,000 MG in SODIUM CHLORIDE 0.9% 100 ML IV SCH (13:55)
[2017-01-08 13:59] LABS: CKMB % 3.6 %
[2017-01-08] MEDS ORDERED: NOREPINEPHRINE 8 MG in SODIUM CHLORIDE 0.9% 242 ML IV SCH (14:00)
[2017-01-08 14:02] LABS: Troponin I Only 0.047 NG/ML (0.00-0.045)
[2017-01-08 14:08] LABS: ABG Base Excess -4.7 MMOL/L (-2.5-2.5); ABG HCO3 25.1 MMOL/L (20-26); ABG Oxygen Saturation 99.3 % (95-100); ABG TCO2 27.4 MMOL/L (23-27)
[2017-01-08 14:10] LABS: ABG PCO2 75.7 MM HG (35-48); ABG PH 7.138 (7.35-7.45)
[2017-01-08 14:53] LABS: Lymphocytes 1 % (20-55); Platelet Estimate Normal; Polychromasia Few; Segmented Neutrophils 95 % (50-85); Total Cells Counted 100
--- NOTE | 2017-01-08 14:54 | Anesthesia ---
Anesthesia Procedures - Arterial Line Consent obtained arterial line: verbal consent Time out performed arterial line: Yes Size (Gauge): 20 Technique used arterial line: guide wire technique Post-Procedure: line sutured into place, dry sterile dressing placed Patient tolerated procedure arterial line: well Complications art line: none Site: right, radial
[2017-01-08] MEDS ORDERED: VANCOMYCIN INJ 2,000 MG in SODIUM CHLORIDE 0.9% 500 ML IV ONE (15:00)
[2017-01-08] MEDS: PHENYLEPHRINE DRIP 40 MG/250 ML PREMIX IV SCH ×2 (15:15→21:49)
[2017-01-08] MEDS ORDERED: PHENYLEPHRINE DRIP 40 MG/250 ML PREMIX IV ONE (15:18)
[2017-01-08 15:29] LABS: ABG Base Excess -6.4 MMOL/L (-2.5-2.5); ABG HCO3 19.2 MMOL/L (20-26); ABG Oxygen Saturation 99.5 % (95-100); ABG PCO2 56.5 MM HG (35-48); ABG TCO2 20.8 MMOL/L (23-27)
[2017-01-08] MEDS ORDERED: SODIUM CHLORIDE 0.9% 1,000 ML IV ONE (15:30)
[2017-01-08 15:34] LABS: ABG PH 7.199 (7.35-7.45)
[2017-01-08] MEDS ORDERED: SODIUM BICARBONATE 50 MEQ/50 ML SYRINGE IV ONE ×2 (15:41→15:42)
--- NOTE | 2017-01-08 15:43 | Ultrasound Report ---
Exam: Bilateral lower extremity venous Doppler ultrasound Comparison: None Clinical history: PTED, new malignancy Technique: Duplex scan of the lower extremity veins using B-mode/grayscale scaled imaging and Doppler spectral analysis and color flow. Findings: Major venous structures of the lower extremities demonstrate a normal course and caliber. Normal color-flow study and spectral analysis. There is normal compression and augmentation of bilateral common femoral, superficial femoral and popliteal veins. The proximal bilateral greater saphenous veins appear to be patent. Impression: No evidence to suggest deep venous thrombosis within either lower extremity. Ultrasound images were captured and stored. PROCEDURE INTERPRETED AT [facility] DEPARTMENT OF RADIOLOGY Final Report Signed by: Dr. Brit Mix
[2017-01-08] MEDS: NOREPINEPHRINE 16 MG in SODIUM CHLORIDE 0.9% 234 ML IV SCH ×2 (15:46→23:58)
[2017-01-08 15:53] LABS: INR 1.3; Partial Thromboplastin Time 38.9 SECS (0-40)
[2017-01-08 15:57] LABS: D-Dimer 21.1 MG/L FEU
--- NOTE | 2017-01-08 16:24 | Pulmonology Consult Note ---
Assessment and Plan (1) Acute renal failure Status: Acute Assessment and plan: Creatinine is 2.8, urine output is low. Current Visit: Yes (2) Acute respiratory failure with hypoxemia Status: Acute Assessment and plan: ABG showed good oxygenation. Difficult to adequately ventilate him with high assist control rate and tidal volume. He is having some bronchospasm. So this could be from COPD but he may have aspirated as well. I do not see any sharon infiltrate. I do not think a bronchoscope would help Current Visit: Yes (3) Bilateral hydronephrosis Status: Acute Assessment and plan: Defer to urology. Current Visit: Yes (4) Bladder mass Status: Acute Assessment and plan: Await pathology. Current Visit: Yes (5) Elevated liver enzymes Status: Acute Assessment and plan: Likely liver metastases. Current Visit: Yes (6) Hypercalcemia Status: Acute Assessment and plan: Likely secondary to widespread malignancy. Being managed by hospitalist and oncology. Current Visit: Yes (7) Left renal mass Status: Acute Assessment and plan: Suspicious for primary renal cancer Current Visit: Yes (8) COPD (chronic obstructive pulmonary disease) Status: Chronic Assessment and plan: Steroids. Current Visit: Yes Qualifiers: Emphysema type: unspecified History of Present Illness Chief complaint: Respiratory failure History of present illness: Mr. Nieto is a 66 year old male who has had hematuria and edema and was found to have a bladder mass bilateral hydronephrosis and pelvic lymphadenopathy. Also multiple nodules in bones and lungs and liver. He felt to have widespread metastatic disease but we do not have any pathologic proof as yet. He had a biopsy of his bladder last week. He was having some vomiting during the night and has some coffee-ground looking GI vomitus. He has had an NG tube placed now. The family thinks he may have aspirated during the night as he was pretty obtunded. He has been on some pain medication. I was asked to see him to manage the ventilator. The family has requested that he not have CPR done. Home Medications Medication Instructions Recorded Confirmed Type Albuterol Inhaler [Proventil 2 puff INH Q6H PRN 01/04/17 01/04/17 History Inhaler] Bisacodyl Tab [Dulcolax Tab] 5 mg PO DAILY 01/04/17 01/04/17 History Docusate Sodium Cap [Colace Cap] 100 mg PO DAILY 01/04/17 01/04/17 History Lisinopril 10 mg PO DAILY 01/04/17 01/04/17 History Polyethylene Glycol Powder 17 gm PO DAILY PRN 01/04/17 01/04/17 History [Miralax] Tamsulosin HCl 0.4 mg PO BID 01/04/17 01/04/17 History Tiotropium [place] [Spiriva 4 gm INH BID 01/04/17 01/04/17 History Respimat] Allergies Allergy/AdvReac Type Severity Reaction Status Date / Time Penicillins Allergy RASH Verified 12/14/16 09:05 ROS unobtainable: due to endotracheal tube Exam (Pulmonay) H&P - Constitutional Vitals: Period Temp Pulse Resp BP Sys/Irving Pulse Ox Last 24 Hr 97.4 F-98.3 F 95-123 13-24 65-125/37-65 72-98 Exam: Patient is obtunded but wakes up to painful stimulus. Pulse is 110. Systolic blood pressure in the 90s on pressors. He is afebrile. O2 sat in the upper 90s on the ventilator. HEENT: Pupils react to light face symmetrical neck is supple no bruits chest is tight. There are bilateral expiratory wheezes and rhonchi. Heart rapid rate normal rhythm no murmurs. Abdomen is soft no masses bowel sounds markedly decreased. Extremities she has bilateral leg edema. Medical,Surgical,& Family Hx - Medical History Cardio: History of: Hypertension Respiratory: History of: COPD Reproductive: Reports: Reproductive Problems (kidney mass, prostate) - Surgical History Thoracic Surgeries: Patient denies;: Lobectomy - Family History Family History: Reports;: Family Diabetes (grandmother), Family Heart Disease ( father), Family Hypertension Denies;: Family Anesthesia Reaction, Family Cancer, Family Hematology, Family Psychiatric Problems, Family Stroke, Additional Family History - Social History Smoking Status: Former smoker Frequency of Alcohol Use: None Type of Drug Use: None Results - Labs CBC & BMP: 01/08/17 13:15 01/08/17 06:20 Lab Results: I have reviewed the past 24 hour labs - Diagnostic Findings Procedure: Chest x-ray: image reviewed by me (Lungs essentially clear. ET tube in good position peer)
[2017-01-08] MEDS: CALCITONIN 400 UNIT/2 ML VIAL SUBCUT SCH ×2 (16:50→16:56)
[2017-01-08] MEDS: methylPREDNISolone SOD SUC 40 MG/1 ML VIAL IV SCH (16:51)
[2017-01-08] MEDS: MORPHINE 2 MG/1 ML SYRINGE IV PRN (16:52)
--- NOTE | 2017-01-08 17:53 | Urology Progress Note ---
Assessment and Plan (1) Gross hematuria Status: Acute Current Visit: Yes (2) Bilateral hydronephrosis Status: Acute Current Visit: Yes (3) Abnormal CT scan, bladder Status: Acute Assessment and plan: I am going to place a Nicole in him. His creatinine is 2.6 hopefully this will improve. I will perform cystoscopy tomorrow. My fear is he has got bladder cancer. I am not worried about the renal masses. These are cysts and hyperdense cyst. These will take backseat to the voiding problems and the hematuria and the abnormal CT Current Visit: Yes Urology - PN: Subj Interval history: Patient situation has changed. Patient had an event and which developed a resuscitation of event. He is now in the ICU in grave prognosis. He is on pressors and has been made a DO NOT RESUSCITATE. I had a long discussion with the daughter and . I agree with DNR. Considering the amount of cancer that he has. It is in his bones and it is in his lungs. We do not know the cell type. That was the reason for the TUR of the bladder/prostate that was going to be done in the morning. That obviously is canceled. As I stated previously I think is going to be bladder. We will clearly canceled the surgery and leave things to the family and Dr. Bragg. Exam - Constitutional Vitals: Period Temp Pulse Resp BP Sys/Irving Pulse Ox Last 24 Hr 97.4 F-98.3 F 95-123 13-24 65-125/37-65 72-98 Results - Labs CBC & BMP: 01/08/17 13:15 01/08/17 06:20
[2017-01-08] MEDS: ALBUTEROL/IPRATROPIUM 3 ML NEB RESP TX SCH (19:28)
[2017-01-08] MEDS: PROPOFOL 1,000 MG/100 ML BOTTLE IV SCH (20:36)
[2017-01-08] MEDS: PANTOPRAZOLE 40 MG VIAL IV SCH (21:33)
[2017-01-09] MEDS: MORPHINE ER 30 MG TABLET PO SCH ×2 (00:52→09:44)
[2017-01-09] MEDS: methylPREDNISolone SOD SUC 40 MG/1 ML VIAL IV SCH ×3 (01:00→20:11)
[2017-01-09] MEDS: ALBUTEROL/IPRATROPIUM 3 ML NEB RESP TX SCH ×4 (01:02→19:18)
[2017-01-09] MEDS: AZTREONAM 1,000 MG in SODIUM CHLORIDE 0.9% 100 ML IV SCH ×2 (01:05→14:51)
[2017-01-09 04:10] LABS: ABG Base Excess -11.1 MMOL/L (-2.5-2.5); ABG HCO3 15.7 MMOL/L (20-26); ABG Oxygen Saturation 97.8 % (95-100); ABG PCO2 45.1 MM HG (35-48)
[2017-01-09 04:15] LABS: ABG PH 7.184 (7.35-7.45)
[2017-01-09] MEDS: CALCITONIN 400 UNIT/2 ML VIAL SUBCUT SCH ×2 (05:13→20:11)
[2017-01-09] MEDS: SODIUM BICARB INJ 100 MEQ in DEXTROSE 5% 1,000 ML IV SCH ×2 (05:14→14:01)
[2017-01-09] MEDS: SODIUM CHLORIDE 0.9% 1,000 ML IV SCH (06:30)
[2017-01-09 06:38] LABS: Apearance,Urine SlightlyCloudy (Clear); Bilirubin,Urine Negative (Negative); Blood, Urine Large mg/dL (Negative); Glucose,Urine (UA) 50 mg/dL (Negative); Ketones,Urine Negative (Negative); Mucus,Urine Occasional /LPF (Occasional); Nitrite,Urine Negative (Negative); Protein,Urine 100 MG/DL; RBC,Urine 466 /HPF (0-4); Urine Color Dark yellow (Yellow); Urine Specific Gravity 1.015 (1.001-1.035); WBC,Urine 28 /HPF (0-6)
--- NOTE | 2017-01-09 06:49 | Pulmonology Progress Note ---
Pulmonary - PN: Subj Interval history: This 66-year-old man has acute respiratory failure and metabolic acidosis. He has apparently widespread metastatic disease. We are having no problems oxygenating him but we are having trouble getting his PCO2 down. Metabolic acidosis and hypotension are problems as well. He is on 2 pressors and his systolic blood pressure is 80. Family is making a decision as to whether to proceed with support or go to comfort measures. Exam (Progress Note) - Constitutional Vitals: Period Temp Pulse Resp BP Sys/Irving Pulse Ox Last 24 Hr 97.4 F-99.5 F 98-129 12-21 50-114/34-74 72-99 Exam: Patient is not sedated but he will open his eyes. Systolic blood pressure is 80 on 2 different pressors. Pupils react to light. Orotracheal tube in place. Neck supple no bruits. Chest is clear and and he has prolonged expiratory phase. Heart rapid rate, regular rhythm no murmurs. Abdomen soft. No masses. Extremities no clubbing or cyanosis, he does have 2+ peripheral edema. Results - Labs CBC & BMP: 01/08/17 13:15 01/08/17 06:20 Lab Results: I have reviewed the past 24 hour labs - Diagnostic Findings Procedure: Chest x-ray: image reviewed by me (Lungs essentially clear. ET tube in place.) Assessment and Plan (1) Acute renal failure Status: Acute Assessment and plan: Creatinine is 2.8, urine output is low. 01/09/2017 lab pending. Urine is very low. Current Visit: Yes (2) Acute respiratory failure with hypoxemia Status: Acute Assessment and plan: ABG showed good oxygenation. Difficult to adequately ventilate him with high assist control rate and tidal volume. He is having some bronchospasm. So this could be from COPD but he may have aspirated as well. I do not see any sharon infiltrate. I do not think a bronchoscope would help 01/09/2017 PO2 is 127 on 60%. Continuing mechanical ventilatory support. Current Visit: Yes (3) Bilateral hydronephrosis Status: Acute Assessment and plan: Defer to urology. Current Visit: Yes (4) Bladder mass Status: Acute Assessment and plan: Await pathology. 01/09/2017 it appears that he has bladder cancer. Apparently there was no biopsy done with earlier cystoscope. Dr. Grider I plan to do another cystoscope but has put those plans on hold due to his worsening condition. Current Visit: Yes (5) Elevated liver enzymes Status: Acute Assessment and plan: Likely liver metastases. Current Visit: Yes (6) Hypercalcemia Status: Acute Assessment and plan: Likely secondary to widespread malignancy. Being managed by hospitalist and oncology. Current Visit: Yes (7) Left renal mass Status: Acute Assessment and plan: Suspicious for primary renal cancer 01/09/2017 Dr. Grider feels that his renal masses are cysts. Current Visit: Yes (8) COPD (chronic obstructive pulmonary disease) Status: Chronic Assessment and plan: Steroids. 01/09/2017 airway pressures not as high. He is not wheezing. Continuing bronchodilators and steroids. Current Visit: Yes Qualifiers: Emphysema type: unspecified
--- NOTE | 2017-01-09 07:07 | Urology Progress Note ---
Assessment and Plan (1) Gross hematuria Status: Acute Current Visit: Yes (2) Bilateral hydronephrosis Status: Acute Current Visit: Yes (3) Abnormal CT scan, bladder Status: Acute Assessment and plan: I am going to place a Nicole in him. His creatinine is 2.6 hopefully this will improve. I will perform cystoscopy tomorrow. My fear is he has got bladder cancer. I am not worried about the renal masses. These are cysts and hyperdense cyst. These will take backseat to the voiding problems and the hematuria and the abnormal CT Current Visit: Yes Urology - PN: Subj Interval history: Patient has made little urine. It is clear. He however is maxed out on the vasopressors. I think is just a matter time before his kidneys completely shut down. Family is deciding whether to continue support or comfort measures only. I think his outlook prognosis is poor. I will follow at a distance. Exam - Constitutional Vitals: Period Temp Pulse Resp BP Sys/Irving Pulse Ox Last 24 Hr 97.4 F-99.5 F 98-129 12-21 50-114/34-74 72-99 Results - Labs CBC & BMP: 01/08/17 13:15 01/08/17 06:20
[2017-01-09 07:24] LABS: Basophils % 0.1 % (0.0-0.8); Hematocrit 30.3 VOL% (42.0-52.0); Hemoglobin 9.1 GM/DL (14.0-18.0); Immature Granulocytes Absolute 0.28 #; Lymphocytes # 0.3 10*3/uL (1.4-4.0); Lymphocytes % 1.2 % (21.2-54.2); Mean Corpuscular Hemoglobin 27 PG (27-34); Mean Corpuscular Volume 89.4 FL (87-102); Mean Platelet Volume 10.6 FL (9.6-12.0); Monocytes % 6.7 % (1.7-12.7); NRBC # 0.04 10*3/uL; Neutrophils # 26.5 10*3/uL (1.4-7.4); Platelet Count 427 T/CUMM (130-400); Red Blood Count 3.39 MC/CUMM (3.8-5.5); Red Cell Distribution Width 14.9 % (9.3-17.3); White Blood Count 29.1 T/CUMM (4-12)
[2017-01-09] MEDS: MORPHINE 2 MG/1 ML SYRINGE IV PRN (07:36)
[2017-01-09] MEDS: NOREPINEPHRINE 16 MG in SODIUM CHLORIDE 0.9% 234 ML IV SCH ×2 (07:41→16:01)
[2017-01-09 07:54] LABS: Band Neutrophils 10 % (0-10); Hypochromasia 1+; Lymphocytes 1 % (20-55); Myelocytes 1 %; Segmented Neutrophils 85 % (50-85); Total Cells Counted 100
[2017-01-09 07:55] LABS: Acanthocytes Few; Microcytosis 1+; Ovalocytes Slight; Platelet Estimate Increased
[2017-01-09] MEDS: PHENYLEPHRINE INJ 160 MG in SODIUM CHLORIDE 0.9% 234 ML IV SCH ×3 (07:55→15:39)
[2017-01-09] MEDS: PROPOFOL 1,000 MG/100 ML BOTTLE IV SCH ×2 (07:55→20:11)
[2017-01-09 07:57] LABS: Polychromasia Slight
[2017-01-09 08:00] LABS: Calcium 9.7 MG/DL (8.5-10.1); Magnesium 2.8 MG/DL (1.8-2.4); Osmolality,Calculated 300.5 MOS/KG (273-304); Potassium 5.4 MMOL/L (3.5-5.1)
[2017-01-09] MEDS: PANTOPRAZOLE 40 MG VIAL IV SCH ×2 (09:43→21:33)
[2017-01-09] MEDS: BISACODYL 5 MG TABLET PO SCH (09:44)
[2017-01-09] MEDS: DOCUSATE SODIUM 100 MG CAPSULE PO SCH (09:44)
[2017-01-09] MEDS: PROCHLORPERAZINE 10 MG TABLET PO SCH (09:44)
[2017-01-09] MEDS: MORPHINE 10 MG/1 ML VIAL IV PRN ×8 (11:39→23:55)
--- NOTE | 2017-01-09 14:31 | Hospitalist Progress Note ---
Assessment and Plan (1) Acute respiratory failure with hypoxemia Status: Acute Assessment and plan: Patient is intubated with a relative hypercarbia. Oxygenation seemed to be optimal. Prognosis still remains poor family is tending toward withdrawing aggressive care including extubation. Current Visit: Yes (2) Renal mass, left Status: Acute Assessment and plan: This is been followed by oncology I will heed to the recommendations. Current Visit: Yes (3) Acute renal failure Status: Acute Assessment and plan: Patient is noted to have hydronephrosis most likely obstructive may be adenopathy is responsible for this. He also has a renal mass. I do not see a nephrology consult on board with therefore call that one too. Current Visit: Yes (4) Hypotension Status: Acute Assessment and plan: Remains hypotensive despite maxing out on the pressors. These will be stopped when family withdrawals aggressive care. Current Visit: Yes Hospitalist: Subjective Interval history: Patient has been seen and examined. He he remains tenuous with extremely poor prognosis. Pressure still quite low despite pressors. He is intubated. Oxygenation is optimal however is difficult to get rid of carbon dioxide from him., Pulmonology and urology urology on the case. Appreciate their recommendations and attention. It is constant possibility neurologic malignancy with metastasis. Patient is in acute respiratory failure and was quite hypotensive stating yesterday morning. I did talk with the and daughter. They are deciding to withdraw all aggressive care; changing him to comfort measures only. They have not made that decision yet at this point because of waiting for other members of the family to be here. is certain this decision will be made once all the keys and grandchildren come we should be around 2 hours from now. In that case antibiotics will be withdrawn for invasive care will be withdrawn and medication will be given alongside oxygen. As mentioned above prognosis is poor is eminent. Exam - Constitutional Vitals: Period Temp Pulse Resp BP Sys/Irving Pulse Ox Last 24 Hr 99.1 F-99.5 F 98-129 12-16 50-114/34-74 92-100 General appearance: normal weight - Head Head exam: Present: normocephalic, atraumatic - Eye Pupils: Present: ANNALISA - ENT ENT exam: Present: other (Orally intubated intubated) - Respiratory Respiratory exam: Present: other (Bilateral crackles no wheezing) - Cardiovascular Cardiovascular exam: Present: regular rate and rhythm - GI/Abdominal GI/Abdominal exam: Present: normal bowel sounds, soft - Extremities Exam Extremities exam: Present: other (The data) - Neurological Exam Neurological exam: Present: other (Sedated and intubated) - Psychiatric Psychiatric exam: Present: other (Sedated and intubated) - Skin Skin exam: Present: warm, dry Results - Labs CBC & BMP: 01/09/17 07:15 01/09/17 07:15 Lab Results: I have reviewed the past 24 hour labs
--- NOTE | 2017-01-09 17:18 | Oncology Progress Note ---
Oncology Subjective PN Interval history: I became involved in this patient's case yesterday afternoon when I spoke with his and family. I have a doctor-patient relationship with Mrs Max. It is my understanding that this patient has suddenly became gravely ill. Previous history of irregular bladder findings approximately 2 years ago. Family states the patient did not seek proper medical follow-up. At this time there is believed to be aspiration pneumonia with profound hypotension requiring vasopressors and mechanical ventilation. Bone scan and CT scan are reviewed with large abdominal lymphadenopathy present , probable hepatic metastasis and what also appears to be widespread bony metastasis. I discussed and recommended a DO NOT RESUSCITATE status yesterday with the patients and other family members during an office consultation yesterday. This morning Mr. Max is sedated and remains hypotensive. I have spoken with ICU nurses this afternoon and there are plans apparently to discontinue some of his support. In my opinion this should began with IV fluids and vasopressors. I have given an order for morphine 6 mg every hour as needed comfort. Removal of mechanical ventilation may simply not be necessary in a patient as ill as he is. Exam - Constitutional Vitals: Period Temp Pulse Resp BP Sys/Irving Pulse Ox Last 24 Hr 99.1 F-99.5 F 99-129 12-17 50-114/39-74 92-100 Results - Labs CBC & BMP: 01/09/17 07:15 01/09/17 07:15
--- NOTE | 2017-01-10 00:35 | Discharge Summary ---
Hospital Course - Hospital Course Hospital Course: Mr. Naranjo was a 66-year-old white male with history of COPD hypertension who presented to the emergency room approximately 1 week ago complaining of flank pain. He stated that it had previously occurred 6 weeks prior to this and had some lower extremity edema that was worsening over the period of time. He was seen by Dr. Kumar in the ER and he was found to have small hypodensities of the liver left kidney mass and bilateral hydronephrosis with irregularly contoured bladder most likely related to a neoplastic process. At that time he had minimal ascites and some anasarca. He had a appointment to see Dr. Grider about 3 days prior to this admission he want to do a cystoscopy but since the patient's Dr. karen Perez's office for medical clearance for surgery. He showed it to Dr. Sales's clinic on the day of her admission he was immediately sent to the emergency room. Upon exam the patient was in mild distress with some bilateral edema of flank pain 4+ edema bilateral lower extremities. He complained about intermediate blurry vision. He was afebrile with mild hypotension and tachycardia he was admitted to our hospitalist service by Dr. Cornelius. Patient spent several days in the hospital. Dr. Grider's concern was that he did have bladder cancer. Consult to Dr. Mantilla who reviewed the workup that showed a bone scan and CT scan revealed large abdominal lymphadenopathy with probable hepatic metastasis and widespread bony metastasis. He discussed CODE STATUS and recommended DO NOT RESUSCITATE status with his and other family members during the consultation yesterday. He was hypotensive. He was removed from mechanical ventilation and made comfort measures only. He was transferred upstairs where he succumbed to his illness at 00 13 on January 10, 2017 family was at his bedside Discharge Plan - Discharge Data Condition at Discharge: - Discharge Medications No Action Albuterol Inhaler [Proventil Inhaler] 2 puff INH Q6H PRN PRN Reason: Shortness Of Breath/Wheezing Bisacodyl Tab [Dulcolax Tab] 5 mg PO DAILY Docusate Sodium Cap [Colace Cap] 100 mg PO DAILY Polyethylene Glycol Powder [Miralax] 17 gm PO DAILY PRN PRN Reason: Constipation Tamsulosin HCl 0.4 mg PO BID Tiotropium Destrehan [Spiriva Respimat] 4 gm INH BID Lisinopril 10 mg PO DAILY - Follow Up or Referral - Forms/Instructions Exam - Constitutional Vitals: Period Temp Pulse Resp BP Sys/Irving Pulse Ox Last 24 Hr 99.4 F-101.5 F 103-129 10- 41-114/24-74 71-100 Discharge Results Procedures and tests throughout hospitalization: Pending Orders 01/08/17 13:15 Blood Culture Stat 01/09/17 Urine Culture Routine 01/10/17 04:00 XR chest 1V portable IN AM Arterial Blood Gas IN AM Basic Metabolic Panel w/Mg IN AM Comp Blood Count Auto Diff IN AM 01/11/17 04:00 XR chest 1V portable IN AM Arterial Blood Gas IN AM 01/12/17 04:00 XR chest 1V portable IN AM Labs on day of discharge: Labs from last 24 hours 01/09/17 01/09/17 01/09/17 07:15 07:15 06:23 WBC 29.1 H RBC 3.39 L Hgb 9.1 L Hct 30.3 L MCV 89.4 MCH 27 MCHC 30.0 L RDW 14.9 Plt Count 427 H MPV 10.6 Neut % (Auto) 91.0 H Lymph % (Auto) 1.2 L Tillman % (Auto) 6.7 Eos % (Auto) 0.0 Baso % (Auto) 0.1 Neut # (Auto) 26.5 H Lymph # (Auto) 0.3 L Tillman # (Auto) 2.0 H Eos # (Auto) 0.0 Baso # (Auto) 0.0 Total Counted 100 Immature Gran % 1.0 Nucleated RBC % 0.1 Immature Gran # 0.28 Segmented Neutrophils 85 Band Neutrophils 10 Lymphocytes 1 L Monocytes 3 Myelocytes 1 Nucleated RBCs # 0.04 Platelet Estimate Increased Polychromasia Slight Hypochromasia 1+ Microcytosis 1+ Ovalocytes Slight Acanthocytes (Spur) Few Morphology Comment ABG pH ABG pCO2 ABG pO2 ABG HCO3 ABG Total CO2 ABG O2 Saturation ABG Base Excess Sodium 139 Potassium 5.4 H Chloride 105 Carbon Dioxide 18 L Anion Gap 21.4 H BUN 73 H Creatinine 4.60 H GFR Calculation 15 BUN/Creatinine Ratio 15.00 Glucose 127 H Calculated Osmolality 300.5 Calcium 9.7 Magnesium 2.8 H Free PSA Total PSA Free & Total PSA Urine Color Dark yellow Urine Appearance Slightlycloudy Urine pH 6.0 Ur Specific [place] 1.015 Urine Protein 100 Urine Glucose (UA) 50 Urine Ketones Negative Urine Blood Large Urine Nitrate Negative Urine Bilirubin Negative Urine Urobilinogen 2.0 H Urine Leukocytes Trace Urine RBC 466 Urine WBC 28 Urine Mucus Occasional Ur Culture Indicated? Results to follow 01/09/17 01/07/17 04:00 07:42 WBC RBC Hgb Hct MCV MCH MCHC RDW Plt Count MPV Neut % (Auto) Lymph % (Auto) Tillman % (Auto) Eos % (Auto) Baso % (Auto) Neut # (Auto) Lymph # (Auto) Tillman # (Auto) Eos # (Auto) Baso # (Auto) Total Counted Immature Gran % Nucleated RBC % Immature Gran # Segmented Neutrophils Band Neutrophils Lymphocytes Monocytes Myelocytes Nucleated RBCs # Platelet Estimate Polychromasia Hypochromasia Microcytosis Ovalocytes Acanthocytes (Spur) Morphology Comment ABG pH 7.184 L* ABG pCO2 45.1 ABG pO2 127.0 H ABG HCO3 15.7 L ABG Total CO2 16.0 L ABG O2 Saturation 97.8 ABG Base Excess -11.1 L Sodium Potassium Chloride Carbon Dioxide Anion Gap BUN Creatinine GFR Calculation BUN/Creatinine Ratio Glucose Calculated Osmolality Calcium Magnesium Free PSA < 0.1 Total PSA 0.43 Free & Total PSA See comments Urine Color Urine Appearance Urine pH Ur Specific [place] Urine Protein Urine Glucose (UA) Urine Ketones Urine Blood Urine Nitrate Urine Bilirubin Urine Urobilinogen Urine Leukocytes Urine RBC Urine WBC Urine Mucus Ur Culture Indicated? Preliminary micro results at discharge 01/08/17 13:15 Blood Culture - Preliminary Blood No growth at 1 day 01/08/17 13:15 Blood Culture - Preliminary Blood No growth at 1 day DS: Provider Date of admission: 01/04/17 14:54 Primary care physician: . No PCP Attending physician on admission: Zoya Cornelius MD Consults: 01/04/17 18:08 Consult to Dietitian [CONS] Routine Reason for Dietitian: Other Consult Comment: weight loss 01/04/17 18:10 Consult to Physician [CONS] Routine Comment: renal mass Consulting Provider: Conner Grider Date Notified: 01/04/17 Time Notified: 18:38 Consult Notification Comment: Dr. 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
[2017-01-10 01:01] VITALS: BP 50/30
[2017-01-10] MEDS ORDERED: VANCOMYCIN INJ 1,250 MG in SODIUM CHLORIDE 0.9% 250 ML IV SCH (02:00)
--- NOTE | 2017-01-11 10:30 | ECHO Report ---
Moshe Nieto Exam Date: 01/08/2017 13:28 Referring Physician: Technologist: Yadira Gracia RDCS Age: 66 Ht (in): Wt (lb): Gender: M Exam Location: [facility] Echo Indications: Acute respiratory failure with hypoxia, Left renal mass, Acute kidney failure, unspecified, COPD, Hypercalcemia, Weakness BP: / HR: Rhythm: Sinus Technical Quality: IMPRESSIONS Technically very difficult study Normal chamber sizes Hyperdynamic LV systolic function with ejection fraction estimate of approximately 70% At least 1+ tricuspid regurgitation with RVSP 45 mmHg plus RAP suggesting moderate pulmonary hypertension MEASUREMENTS (Male / Female) Normal Values 2D ECHO LV Diastolic Diameter PLAX 4.1 cm 4.2 - 5.9 / 3.9 - 5.3 cm LV Systolic Diameter PLAX 2.9 cm LV Fractional Shortening PLAX 28.2 % IVS Diastolic Thickness 0.8 cm 0.6 - 1.0 / 0.6 - 0.9 cm LVPW Diastolic Thickness 1.0 cm 0.6 - 1.0 / 0.6 - 0.9 cm RV Internal Dim ED PLAX 3.1 cm Aortic Root Diameter 3.0 cm LA Systolic Diameter LX 1.9 cm 3.0 - 4.0 / 2.7 - 3.8 cm DOPPLER TR Peak Velocity 335.0 cm/s TR Peak Gradient 44.9 mmHg FINDINGS Left Ventricle Normal left ventricular cavity size. Normal left ventricular wall thickness. Left ventricular ejection fraction is estimated at >60 %. Right Ventricle The right ventricle is normal in size and function. Right Atrium The right atrium is normal in size. Left Atrium The left atrium is normal in size. Mitral Valve Morphologically normal mitral valve without significant stenosis or prolapse. There is no mitral regurgitation. Aortic Valve Aortic valve sclerosis without stenosis or regurgitation. Tricuspid Valve Morphologically normal tricuspid valve. Trace to mild tricuspid valve regurgitation. Tricuspid regurgitation velocities suggest a PAP of 55 mmHg. Pulmonic Valve Morphologically normal pulmonic valve without significant stenosis. There is no pulmonic regurgitation. Pericardium Normal pericardium without effusion. Aorta Normal ascending aorta dimension. Joaquín Barton (Electronically Signed) Final Date: 11 January 2017 10:29
== END 2017-01-10 00:13 | disposition expired | DRG 686 ==
LOC: SUATTDRO → N.ED 12:42 → SUATTDRO 14:54 → N.EDINP 14:54 → N.5E 16:50 → N.EDINP 16:56 → N.ED 16:56 → N.5E 17:42 → N.ICU 01-08 12:05 → N.2E 01-09 22:28
PROVIDERS: ADMIT Family Medicine; ATTEND Internal Medicine